=== PATIENT | male | born 1950 | race Caucasian/White ===

== ENCOUNTER 2017-08-29 14:40 | Emergency (ER) | payer OTHER ==
[~2017-08-29] VITALS: Ht 175.2 cm; Wt 90.7 kg
[~2017-08-29 14:40] MED LIST: AUGMENTIN 875 M1 TAB PO; CLARITIN10 MG PO; HYDROCODONE BIT1 T11 PO; NO DAILY MEDS; NORFLEX100 MG PO; TRAMADOL HCL50 MG PO
[2017-08-29 14:43] VITALS: BP 121/84
[2017-08-29] MEDS ORDERED: KEFLEX500 M1 PO (14:57)
[2017-08-29] MEDS ORDERED: SEPTDS PO (14:57)
== END 2017-08-29 15:03 | disposition home or self-care (01) ==
LOC: ED 14:40
DX: L02.215 Cutaneous abscess of perineum (principal); Z88.6 Allergy status to analgesic agent

== ENCOUNTER → 2018-10-17 | Outpatient (CLI) | payer OTHER ==
[~2018-10-17] MED LIST changes: +KEFLEX500 M1 PO; +SEPTDS PO
== END | disposition home or self-care (01) ==
LOC: WOUNDCARE 00:16
DX: L98.491 Non-pressure chronic ulcer of skin of other sites limited to breakdown of skin (principal); I10 Essential (primary) hypertension; E78.5 Hyperlipidemia, unspecified; E66.9 Obesity, unspecified; N40.0 Benign prostatic hyperplasia without lower urinary tract symptoms; Z68.29 Body mass index [BMI] 29.0-29.9, adult; Z87.891 Personal history of nicotine dependence; Z87.81 Personal history of (healed) traumatic fracture